=== PATIENT | female | born 1960 | race African-American/Black ===

== ENCOUNTER 2017-12-08 17:19 | Observation (INO) | payer SELFPAY ==
[2017-12-08 18:48] LABS: CKMB 0.4 ng/mL (0-6.6); Troponin I 0.107 ng/mL (< 0.028)
[2017-12-08 18:50] LABS: #Basophils 0.1 thou/uL (0.0-0.2); #Eosinphils 0.1 thou/uL (0.0-0.7); #Lymphocytes 2.7 thou/uL (1.20-3.40); #Monocytes 0.9 thou/uL (0.11-0.59); #Neutrophils 6.7 thou/uL (1.40-6.50); %Basophils 0.7 % (0.0-1.0); %Eosinophils 0.6 % (0.0-10.0); %Lymphocytes 25.4 % (21.0-51.0); %Neutrophils 64.2 % (42.0-75.0); Hemoglobin 8.6 g/dL (12.0-16.0); Mean Corpuscular HGB CONC 32.5 g/dL (32.0-36.0); Mean Corpuscular Hemoglobin 26.8 pg (27.0-31.0); Mean Corpuscular Volume 82.6 fL (78.0-98.0); Mean Platelet Volume 7.9 fL (7.4-10.4); Platelet Count 314 thou/uL (130-400); RBC Distribution Width 14.5 % (11.5-14.5); Red Blood Cell (RBC) Count 3.19 mill/uL (4.20-5.40); White Blood Cell (WBC) Count 10.4 thou/uL (4.8-10.8)
[2017-12-08 20:58] VITALS: BMI 16.0
--- NOTE | 2017-12-08 21:35 | PDOC.FPRHP ---
- History of Present Illness Chief Complaint: syncope History of Present Illness: Ms Win is a 57yo female with pmh of polysubstance abuse and recently diagnosed microcytic anemia who presented to [place] ED for syncope. She was found to have multiple pulmonary masses and brain lesions concerning for lung carcinoma with metastasis. Pt reports LOC this morning witnessed by her daughter. She had no presyncopal symptoms of lightheadedness or dizziness. Reports being down for 2 minutes. Reports 2-3 month hx of severe fatigue, night sweats, back and "bone pain", and anorexia. Reports >50lb wt loss over last 6 months. Family reports pt will eat a small spoonful of her favorite food in one day. She was recently diagnosed with microcytic anemia by PCP and prescribed iron replacement. She was unable to afford the iron and therefore has not taken it. Denies voice changes, dysphagia, fever. - Allergies/Adverse Reactions Allergies Allergy/AdvReac Type Severity Reaction Status Date / Time No Known Allergies Allergy Verified 12/08/17 22:16 - Home Medications Medication Instructions Recorded Confirmed Type No Known 12/08/17 12/08/17 History - History PMHx: Anemia, Substance abuse, alcohol abuse, lung mass found in 2014 admission PSHx: tubal ligation FHx: None Social: Works in a half-way. Currently living with daughter due to weakness and fatigue- previously lived alone. Reports hx of crack/cocaine use- last use 2 wks ago, reports drinking 3-5 drinks per week, smoked 1/2 pk cigarettes per day for 40 years, reports quitting ~1yr ago - Review of Systems General: reports: fever/chills, weight/appetite/sleep changes, night sweats, fatigue Eyes: denies: eye pain, vision changes ENT: denies: nasal congestion, rhinorrhea Respiratory: reports: cough (chronic productive of white sputum). denies: shortness of breath Cardiovascular: denies: chest pain, edema Gastrointestinal: denies: nausea, vomiting, diarrhea, constipation, abdominal pain Genitourinary: reports: other (denies hematuria). denies: dysuria Skin: reports: rashes (back c/w hx of shingles). denies: lesions Musculoskeletal: reports: pain, stiffness Neurological: reports: syncope. denies: numbness - Vital signs BP: 111/86 HR: 96 RR: 16 Tmax: 98.2 Pox: 97% on RA - Physical Exam Constitutional: NAD, awake, alert and oriented HEENT: normocephalic and atraumatic, PERRLA, TM's clear and intact, MMM, other ( poor dentition, multiple dental caries) Neck: trachea midline Heart: RRR, normal S1/S2 Lungs: CTAB, no respiratory distress Abdomen: soft, non-tender, bowel sounds present Musculoskeletal: normal structure Neurological: no focal deficit, CN II-XII intact, normal sensation, other ( Normal heel to adkins, rapid alternating movements, object identification) -Skin: Right sided hyperpigmentated areas in distribution of T6, c/w hx of shingles Heme/Lymphatic: no unusual bruising or bleeding, no petechia Psychiatric: normal mood and affect, good judgment and insight, intact recent and remote memory FMR H&P: Results - Labs Result Diagrams: 12/08/17 18:44 Lab results: WBC 10.4 thou/uL (4.8-10.8) 12/08/17 18:44 Hgb 8.6 g/dL (12.0-16.0) L 12/08/17 18:44 Hct 26.3 % (36.0-47.0) L 12/08/17 18:44 MCV 82.6 fL (78.0-98.0) 12/08/17 18:44 Plt Count 314 thou/uL (130-400) 12/08/17 18:44 Neutrophils % 64.2 % (42.0-75.0) 12/08/17 18:44 CK-MB (CK-2) 0.4 ng/mL (0-6.6) 12/08/17 18:14 - Radiology Interpretation CT scan - head Status: report reviewed by me Additional comment: Small 1cm area of enhancement in Left posterior inferior cerebellar hemisphere. Most likely a vascular mass CT scan - chest Status: report reviewed by me Additional comment: multiple pulmonary masses some spiculated c/w metastatic disease. Massive mediastinal hilar adenopathy. FMR H&P: A/P - Problem List (1) Lung mass Current Visit: Yes Status: Acute Code(s): R91.8 - OTHER NONSPECIFIC ABNORMAL FINDING OF LUNG FIELD (2) Metastatic cancer to brain Current Visit: Yes Status: Acute Code(s): C79.31 - SECONDARY MALIGNANT NEOPLASM OF BRAIN (3) Carcinoma, lung Current Visit: Yes Status: Acute Code(s): C34.90 - MALIGNANT NEOPLASM OF UNSP PART OF UNSP BRONCHUS OR LUNG (4) Malnutrition Current Visit: Yes Status: Acute Code(s): E46 - UNSPECIFIED PROTEIN-CALORIE MALNUTRITION (5) Alcohol abuse Current Visit: Yes Status: Acute Code(s): F10.10 - ALCOHOL ABUSE, UNCOMPLICATED (6) Anemia, iron deficiency Current Visit: Yes Status: Acute Code(s): D50.9 - IRON DEFICIENCY ANEMIA, UNSPECIFIED (7) Substance abuse Current Visit: Yes Status: Acute Code(s): F19.10 - OTHER PSYCHOACTIVE SUBSTANCE ABUSE, UNCOMPLICATED - Plan Ms Win is a 57yo female with pmh of recently diagnosed anemia and CT imaging concerning for lung malignancy here iwith syncope and elevated troponin Syncope - Unclear etiology however newly discovered brain mass likely etiology. No presyncope but will check orthostatics - Possibly related to/exacerbated by anemia Elevated Troponin, stable and downtrending - 0.12-> 0.107-> 0.101 - No chest pain, likely demand ischemia with underlying anemia - EKG NSR without ST changes, will repeat if symptomatic - Monitor on tele obs Lung masses concerning for lung malignancy with likely brain mets - Prior admission in [address] findings of right upper lobe spiculated mass. Dr Anderson evaluated her and pt was strongly advised to f/u with Dr Anderson and PCP for further evaluation. Pt expressed understanding at the time but it is unclear if she followed up. - CT Chest 12/08/17: multiple pulmonary masses some spiculated c/w metastatic disease. Massive mediastinal hilar adenopathy. - CT brain 12/08/17: Small 1cm area of enhancement in Left posterior inferior cerebellar hemisphere. Most likely an a vascular mass - 30lb wt loss since last admission in 2013 - Consult Oncology in AM - Consult Neurology in AM - Consulted Palliative Care - Ibuprofen and [place] PRN for pain - Consider further imaging of spine for evaluation of back pain Malnutrition likely 2/2 suspected malignancy - Unintentional wt loss of pt reported 50lbs over 6 months - Consulted dietetics - Supplemental nutrition TID after meals - Gentle IVF LR @90 Hypokalemia - 3.2 - Replaced with 40 IV - Continue to monitor Microcytic/Normocytic Anemia - MCV variable - Likely result of malignancy - Ordered Iron studies, B12, folate, FOBT Mildly dilated pancreatic duct on CT - Pt asymptomatic Polysubstance Abuse - last reported crack/cocaine abuse 2 weeks ago - Alcohol level 22, initiated CHANTAL protocol Code Status: DNR DVT ppx: Lovenox GI ppx: None FMR H&P: Upper Level - Pertinent history Ms. Win is a very pleasant 57 yo AAF who presents from home after syncopal episode witnessed by her daughter who is not present currently. She states she was not responsive for about 2 minutes. She is unaware if she had any seizure like activity. She has been feeling poorly for the last few months and has no appetite. Endorses night sweats and weight loss of about 50 pounds. She has a history of anemia but was unable to take iron pills. She otherwise has no medical problems she knows of. - Pertinent findings Gen: awake, alert and oriented x3. Cachetic appearing HEENT: EOMI, conjunctiva non-injected CV: RRR, no murmur noted RESP: CTAB ABD: soft, nontender, nondistended, bowel sounds present Ext: No edema BACK: No CVAT, bruising noted at recent shingles site on R flank, well-healed Neuro: No focal deficits - Plan Date/Time: 12/08/172134 57 yo AAF with no significant PMHx presents after syncopal episode likely related to brain lesion noted on CT 1. Syncope likely 2/2 brain mass. DDX includes vasovagal syncope, seizure, arrythmia, substance abuse. No presyncopal symptoms or lightheadedness. Will check orthostatics. Will consult oncology in AM for concerning findings on CT chest and brain. Has seen Dr. Anderson in the past as well. Concern for seizure at outside facility. Started on Keppra and given 800 mg IV at outside ER (approx. 20 mg/kg) Neuro consult in a.m. Will start 500 mg BID and appreciate neurology recommendations with dosing adjustment or if indicated to continue. 2. Normocytic Anemia: Likely related to suspected malignancy and chronic disease. Will check iron studies, B12, folate. Likely will require hematology assistance. 3. Cachexia and deconditioning: PT/OT and appreciate dietary recommendations. Will add Ensure TID with meals. 4. Hypokalemia: will replete IV 5. Elevated troponin: No chest pain. Likely demand ischemia related to anemia. Will give gentle IV fluids. Recheck if any chest pain. On telemetry monitoring. 6. Substance abuse: Reports occasional crack-cocaine and marijuana use. Encourage cessation 7. Alcohol use: Serum 22. ASE protocol. Reports drinking 3 drinks/week. 8. Hypercalcemia: Mild. Monitor. May be associated with likely malignancy. PPX: [place] Truong, Michelle Paz MD, have evaluated this patient and agree with findings/plan as outlined by financial intern resident. Pertinent changes/additions are listed here.
[2017-12-08 21:57] LABS: Troponin I 0.101 ng/mL (< 0.028)
[2017-12-09] MEDS ORDERED: HYDROcodone/Acetaminophen 5/325 mg Tablet PO PRN (00:03)
[2017-12-09] MEDS ORDERED: Potassium Chloride 10 MEQ in Premix Bag 1 BAG IVPB SCH (00:15)
[2017-12-09] MEDS ORDERED: Gabapentin 100 MG CAP PO SCH (00:30)
[2017-12-09] MEDS ORDERED: Potassium Chloride 20 MEQ TAB PO SCH (00:45)
[2017-12-09] MEDS: Lactated Ringer's 1,000 ML IV SCH ×3 (00:53→21:33)
[2017-12-09 03:39] LABS: Bilirubin Negative (Negative); Blood, Urine Negative (Negative); Clarity CLEAR (Clear); Glucose, Urine (Dipstick) 250 mg/dL (Negative); Leukocyte Negative (Negative); Nitrite Negative (Negative); Protein, Urine (Dipstick) Negative (Neg-Trace); Specific Gravity, Urine 1.031 (1.002-1.036); pH, Urine 6.5 (5.0-9.0)
[2017-12-09 03:42] LABS: Bacteria/HPF None Seen HPF (None Seen); Hyaline Casts/LPF 0-3 HYALINE CAST LPF (0-3 Hyaline); Pathc Cast-AUWi Flag 0.14 (0-2.49); RBC/HPF 0-3 HPF (0-3); WBC/HPF 0-3 HPF (0-3)
[2017-12-09 03:55] LABS: Medtox Reader # READER 4
[2017-12-09 03:56] LABS: Amphetamine Not Detected (NotDetected); Barbiturates Screen Detected (NotDetected); Benzodiazepine Screen Not Detected (NotDetected); Cocaine Metabolite Screen Not Detected (NotDetected); Medtox Control Line Valid? VALID (VALID); Methadone Not Detected (NotDetected); Methamphetamine Not Detected (NotDetected); Opiate Screen Not Detected (NotDetected); Oxycodone Screen Not Detected (NotDetected); Phencyclidine (PCP) Not Detected (NotDetected); THC/Cannabinoid Screen Not Detected (NotDetected); Tricyclic Screen Not Detected (NotDetected)
--- NOTE | 2017-12-09 05:59 | PDOC.FM ---
- Subjective Subjective: Pt feeling well this AM, reporting good rest. Pt has no complaints at this time. No fevers/ chills, no sob no cough no hemoptysis, no cp no palpitations, no nausea no vomiting - Objective Vital Signs & Weight: Vital Signs (12 hours) Temp Pulse Resp BP BP BP Pulse Ox 12/09/17 04:00 152/87 H 12/09/17 03:13 98.0 F 88 21 H 152/87 H 96 12/09/17 00:00 117/79 12/08/17 23:08 97.8 F 97 24 H 117/79 97 12/08/17 22:33 97.7 F 88 14 12/08/17 19:49 97.7 F 88 14 150/80 H 100 Weight Weight 45.087 kg Result Diagrams: 12/09/17 05:29 12/09/17 05:29 Phys Exam - Physical Examination pt appears frail and cachectic HEENT: moist MMs, sclera anicteric Respiratory: no wheezing, clear to auscultation bilateral Cardiovascular: RRR, no significant murmur Gastrointestinal: soft, non-tender, positive bowel sounds Musculoskeletal: no edema Neurological: normal sensation, moves all 4 limbs Psychiatric: normal affect Skin: no rash, normal turgor Dx/Plan (1) Metastatic cancer to brain Code(s): C79.31 - SECONDARY MALIGNANT NEOPLASM OF BRAIN Status: Acute (2) Carcinoma, lung Code(s): C34.90 - MALIGNANT NEOPLASM OF UNSP PART OF UNSP BRONCHUS OR LUNG Status: Acute (3) Anemia, iron deficiency Code(s): D50.9 - IRON DEFICIENCY ANEMIA, UNSPECIFIED Status: Acute (4) Lung mass Code(s): R91.8 - OTHER NONSPECIFIC ABNORMAL FINDING OF LUNG FIELD Status: Acute (5) Malnutrition Code(s): E46 - UNSPECIFIED PROTEIN-CALORIE MALNUTRITION Status: Acute (6) Substance abuse Code(s): F19.10 - OTHER PSYCHOACTIVE SUBSTANCE ABUSE, UNCOMPLICATED Status: Acute - Plan Plan: Ms Win is a 57yo female with pmh of recently diagnosed anemia and CT imaging concerning for lung malignancy here with syncope Syncope A- likely caused by newly discovered brain mass, possibly exacerbated by anemia. Pt has had no new syncopal episodes or neurologic sx P- monitor neurologic symptoms. Elevated Troponin A- stable and downtrending, 0.12-> 0.107-> 0.101. No chest pain, likely demand ischemia with underlying anemia. EKG NSR without ST changes, will repeat if symptomatic P- Monitor on tele obs Lung masses concerning for lung malignancy with likely brain mets A- Prior admission in 2013 dx with lung mass pt advised to f/u with Dr. Anderson. CT chest and brain 12/08 showed multiple spiculated masses in lungs and 1cm mass in L cerebellum. P- Consult Oncology today - Consult Neurology today - Consulted Palliative Care - Ibuprofen and [place] PRN for pain - Consider further imaging of spine for evaluation of back pain Malnutrition A- likely 2/2 suspected malignancy. Unintentional wt loss of pt reported 50lbs over 6 months P- Consulted dietary - Gentle IVF LR @90 Hypokalemia A- 3.2->3.9 after IV replenishment P- resolved Microcytic/Normocytic Anemia A- MCV variable. Likely result of malignancy. Low folate and iron levels P- Replenish iron and folate PO Polysubstance Abuse A- last reported crack/cocaine abuse 2 weeks ago. Alcohol level 22 P- CHANTAL protocol - UDS Code Status: DNR DVT ppx: Lovenox GI ppx: None
[2017-12-09 06:07] LABS: Anion Gap 11 mmol/L (10-20); BUN (Urea Nitrogen) 10 mg/dL (9.8-20.1); Calc. Creatinine Clearance 55 mL/min (70-130); Calcium 9.9 mg/dL (7.8-10.44); Carbon Dioxide 27 mmol/L (22-29); Chloride 102 mmol/L (98-107); Estimated GFR-MDRD 89; Glucose 95 mg/dL (70-105); Iron 23 ug/dL (50-170); Iron Binding Capacity, Total 233 mcg/dL (265-497); Potassium 3.9 mmol/L (3.5-5.1); Sodium 136 mmol/L (136-145)
[2017-12-09 06:49] LABS: Vitamin B12 Greater than 2000 pg/mL (211-911)
[2017-12-09] MEDS: Ibuprofen 800 MG TAB PO PRN ×2 (06:55→16:18)
[2017-12-09 07:15] LABS: #Eosinphils 0.1 thou/uL (0.0-0.7); #Lymphocytes 2.2 thou/uL (1.20-3.40); #Neutrophils 5.1 thou/uL (1.40-6.50); %Basophils 0.4 % (0.0-1.0); %Lymphocytes 26.3 % (21.0-51.0); %Monocytes 11.6 % (0.0-10.0); %Neutrophils 60.7 % (42.0-75.0); Hemoglobin 8.2 g/dL (12.0-16.0); Mean Corpuscular Hemoglobin 27.7 pg (27.0-31.0); Mean Corpuscular Volume 83.8 fL (78.0-98.0); Mean Platelet Volume 7.7 fL (7.4-10.4); Platelet Count 352 thou/uL (130-400); RBC Distribution Width 14.3 % (11.5-14.5); Red Blood Cell (RBC) Count 2.97 mill/uL (4.20-5.40); White Blood Cell (WBC) Count 8.5 thou/uL (4.8-10.8)
[2017-12-09] MEDS: Gabapentin 100 MG CAP PO SCH ×3 (08:38→21:33)
[2017-12-09] MEDS: Ferrous Sulfate 325 MG TAB PO SCH ×2 (08:38→16:18)
[2017-12-09] MEDS: levETIRAcetam 500 MG TAB PO SCH ×2 (08:39→21:33)
[2017-12-09] MEDS: Enoxaparin Sodium 40 MG/0.4 ML SYRINGE SC SCH ×2 (08:39→08:42)
--- NOTE | 2017-12-09 13:11 | PRG ---
DATE OF SERVICE: 12/09/2017 Ms. Win is a 57-year-old black female who was admitted from an outlying ER following a syncopal epis ode. She possibly had a seizure in the ER and a head CT revealed a brain lesion consistent with meta stases. Her chest x-ray showed evidence of possible showed possible lung cancer with several lung ma sses. She was transferred to our institution for higher level of care. This morning she is awake, alert, in no distress. She is having no respiratory distress or chest di scomfort. She does have [id number] history of smoking. Her chest CT does show some lung masses a s large as 2 cm. We will consult Pulmonology to see if bronchoscopy would be the next logical step i n her workup. We will continue her on anti-seizure medication given that she also has brain metastas es, likely from her lung. Clinically, however, she is stable.
--- NOTE | 2017-12-09 15:14 | CON ---
DATE OF SERVICE: 12/09/2017 This is a 57-year-old -[place] female, who presented with a syncopal episode. During the course of her workup, CT head showed a posterior circulation mass. CT of the chest shows multiple lung masses, largest one 2.4 cm in the right upper lobe and 2 cm in the left lower lobe, extensive adenopathy around the hilum. There are enlarged lymph nodes in the left hilum with multiple bilateral masses. There were 3 daughters at the bedside, whom I spoke to, who are all very difficult to talk to. States that the patient has been smoking up to a pack a day for most of her life. She quit smoking about 8 months ago. She was told in 2013 she had a lung cancer. I saw her briefly. She did not want any workup at that time. In 2014, she had a CAT scan in [place], which showed increasing right lung mass. She once again declined any treatment or workup, and now they tell me that because she had no insurance, no transportation, no workup was done. Now, they want all kinds of diagnosis and treatment if possible. She has longstanding history of substance abuse; in fact, the urine toxicology screen is positive for marijuana and cocaine. PAST MEDICAL HISTORY: No diabetes, hypertension. PREVIOUS SURGERIES: Tubal ligation. CHRONIC MEDICATIONS: None. SOCIAL HISTORY: Alcohol: Two beers a day. Tobacco: As noted. Substance: As noted. Unemployed. REVIEW OF SYSTEMS: Pertinent for marked weight loss. PHYSICAL EXAMINATION: VITAL SIGNS: Sats are 90% on room air, respirations 16, temperature 97, blood pressure 112/80. GENERAL: She is cachectic. HEENT: Poor dental hygiene. NECK: She has got bilateral supraclavicular lymphadenopathy. CHEST: Decreased breath sounds, no wheezing. CARDIAC: Normal S1 and S2, no gallops. ABDOMEN: Soft, no masses. LABORATORY DATA: White count is 8000, H and H 8 and 24, platelet count is 352. Electrolytes are normal. IMPRESSION: 1. Extensive metastatic cancer, probably adeno with bilateral supraclavicular, bilateral hilar, andCNS_ metastasis. 2. Marked cachexia. 3. Substance abuse. PLAN: I am not so sure at this stage what the benefit will be from getting a tissue diagnosis. I will get an input from Oncology to see whether she is a candidate for any kind of treatment. Best option and the easiest option will be to do a right supraclavicular lymph node biopsy. She has a big lymph node that is easily accessible. I am not so sure whether the family understands the extent of her problem. At this stage, we will discuss and follow. Consultation note of 70 minutes, 50% spent in direct patient care. PENNY
--- NOTE | 2017-12-09 23:20 | CON ---
DATE OF CONSULTATION: 12/09/2017 CONSULTING PHYSICIAN: Family medicine service. IMPRESSION: 1. Brief syncopal episode likely secondary to her cachexia. 2. Metastatic cerebellar lesion likely secondary to underlying lung cancer. PLAN: 1. MRI of the brain to determine whether there are other lesions present, which would change the pro gnosis and potential treatment plan. 2. Continue Keppra for now. HISTORY OF PRESENT ILLNESS: Ms. Win is a 57-year-old black female with a past history of tobacco us e as well as some illicit drug use. She was sitting out in her yard in a chair when she suddenly los t consciousness. The family members that were there said that she was only out for a matter of secon ds. She awoke briefly afterward without any headache, nausea, vomiting, chest pain, diaphoresis, or other symptoms associated with the event. She had no prodromal feeling that there was about to happe n. There was no convulsive activity either. She was brought in and workup undertaken. Her CT shows multiple pulmonary lesions. CT of the brain shows a cerebellar lesion, which appears to be a metast atic process. She is not complaining of any headache, dizziness, nausea, or other problems at this p oint. PAST MEDICAL HISTORY: Otherwise, negative. ALLERGIES: None reported. SOCIAL HISTORY: She quit smoking about a year ago but was a heavy smoker prior to this. FAMILY HISTORY: Noncontributory. REVIEW OF SYSTEMS: Otherwise, negative. PHYSICAL EXAMINATION: GENERAL: She is a thin middle-aged woman appears a bit older than her stated age. HEENT: Unremarkable. NECK: Supple. EXTREMITIES: No cyanosis. NEUROLOGIC: She is alert and appropriate. Her speech is fluent and clear. Her exam is nonfocal. N o abnormal movements were seen. LABORATORY STUDIES: Only remarkable for moderate anemia. EKG showed a sinus rhythm. SUMMARY: Middle-aged woman with multiple pulmonary lesions and probable metastatic lesion to the bra in. She may have other less visible lesions that will be seen on MRI. Current cerebral lesion would be amenable to surgical excision. We would go and proceed with the MRI, it is determine whether thi s is a feasible option for her.
--- NOTE | 2017-12-10 05:30 | PDOC.FM ---
- Subjective Subjective: Pt doing well this AM.No complaints at this time. I spoke with her at length about goals of care as pt had had time to think it over. She wishes to go home with comfort care alone and plans to refuse any further work up of the cancer for oncologic reasons. She does not want chemo or radiation of any kind and states that she just wishes to be comfortable. ROS: no fevers/chills, no sob no cough, no cp no palpitations, no nausea/ vomiting - Objective MAR Reviewed: Yes Vital Signs & Weight: Vital Signs (12 hours) Temp Pulse Resp BP BP Pulse Ox 12/10/17 03:16 97.6 F 82 16 121/78 96 12/09/17 20:00 108/78 12/09/17 19:55 97.6 F 75 16 12/09/17 19:36 97.6 F 75 16 108/78 97 Weight Admit Weight 45.087 kg Weight 45.087 kg I&O: 12/08/17 12/09/17 12/10/17 06:59 06:59 06:59 Intake Total 1182 650 Output Total 400 500 Balance 782 150 Result Diagrams: 12/09/17 05:29 12/09/17 05:29 Phys Exam - Physical Examination Constitutional: NAD cachectic HEENT: moist MMs, sclera anicteric Respiratory: no wheezing, clear to auscultation bilateral Cardiovascular: RRR, no significant murmur Gastrointestinal: soft, non-tender Musculoskeletal: no edema, pulses present Neurological: normal sensation, moves all 4 limbs Psychiatric: normal affect Skin: no rash, normal turgor Dx/Plan (1) Metastatic cancer to brain Code(s): C79.31 - SECONDARY MALIGNANT NEOPLASM OF BRAIN Status: Acute (2) Carcinoma, lung Code(s): C34.90 - MALIGNANT NEOPLASM OF UNSP PART OF UNSP BRONCHUS OR LUNG Status: Acute (3) Anemia, iron deficiency Code(s): D50.9 - IRON DEFICIENCY ANEMIA, UNSPECIFIED Status: Acute (4) Lung mass Code(s): R91.8 - OTHER NONSPECIFIC ABNORMAL FINDING OF LUNG FIELD Status: Acute (5) Malnutrition Code(s): E46 - UNSPECIFIED PROTEIN-CALORIE MALNUTRITION Status: Acute (6) Substance abuse Code(s): F19.10 - OTHER PSYCHOACTIVE SUBSTANCE ABUSE, UNCOMPLICATED Status: Acute - Plan Plan: Ms Win is a 57yo female with pmh of recently diagnosed anemia and CT imaging concerning for lung malignancy here with syncope Syncope A- likely caused by newly discovered brain mass, possibly exacerbated by anemia. Pt has had no new syncopal episodes or neurologic sx P- monitor neurologic symptoms. -neuro consulted -MRI per neuro recs, await results Elevated Troponin A- stable and downtrending, 0.12-> 0.107-> 0.101. No chest pain, likely demand ischemia with underlying anemia. EKG NSR without ST changes, will repeat if symptomatic P- Monitor on tele obs Lung masses concerning for lung malignancy with likely brain mets A- Prior admission in 2013 dx with lung mass pt advised to f/u with Dr. Anderson. CT chest and brain 12/08 showed multiple spiculated masses in lungs and 1cm mass in L cerebellum. Palliative care not stated pt wanted full code status and to agressively treat the cancer but this AM pt communicates otherwise P- Consulted Oncology - Consulted Neurology- getting mri - Consulted Palliative Care -will clarify pt goals of care with pt and palliative team today - Ibuprofen and [place] PRN for pain - potentially discharge today with hospice depending on pt goals of care Malnutrition A- likely 2/2 suspected malignancy. Unintentional wt loss of pt reported 50lbs over 6 months P- Consulted dietary, await recs - Gentle IVF LR @90 Hypokalemia A- 3.2->3.9 after IV replenishment P- resolved Microcytic/Normocytic Anemia A- MCV variable. Likely result of malignancy. Low folate and iron levels P- Replenish iron and folate PO Polysubstance Abuse A- last reported crack/cocaine abuse 2 weeks ago. Alcohol level 22 P- CHANTAL protocol Code Status: DNR DVT ppx: Lovenox GI ppx: None
--- NOTE | 2017-12-10 07:55 | PRG ---
DATE OF SERVICE: 12/10/2017 This morning she is awake, alert and responsive. Denies any pain or shortness of breath. PHYSICAL EXAMINATION: VITAL SIGNS: Temperature 97, pulse 82, sats 98%, respirations 18. CHEST: No wheezing. CARDIAC: Normal S1, S2, no gallops. ABDOMEN: Soft, no masses. IMPRESSION: 1. Metastatic lung cancer. 2. Chronic obstructive pulmonary disease. 3. Substance abuse. 4. Tobacco abuse. PLAN: I am not so sure the patient understands the extent of her problem. I have suggested we try and get a supraclavicular lymph node biopsy, probably the easiest way to make a diagnosis. It is unclear whether she will be treated. I am thinking more than likely it is adeno carcinoma. Will get Oncology opinion and then further discuss with patient whether she wants to be t reated, if she will agreed to have a lymph node biopsy. We will follow.
[2017-12-10] MEDS: levETIRAcetam 500 MG TAB PO SCH ×2 (08:47→19:27)
[2017-12-10] MEDS: Ferrous Sulfate 325 MG TAB PO SCH ×2 (08:48→15:55)
[2017-12-10] MEDS: Gabapentin 100 MG CAP PO SCH ×3 (08:48→19:26)
[2017-12-10] MEDS: Lactated Ringer's 1,000 ML IV SCH (08:51)
[2017-12-10] MEDS: Enoxaparin Sodium 40 MG/0.4 ML SYRINGE SC SCH (09:00)
[2017-12-10] MEDS ORDERED: Folic Acid 1 MG TAB PO SCH (12:00)
[2017-12-10 15:40] VITALS: BP 128/84; TEMP 97.6
--- NOTE | 2017-12-10 15:51 | MRI ---
MRI BRAIN WITH AND WITHOUT IV CONTRAST: Date: 12/10/17 HISTORY: Patient with metastatic lung cancer and recent CT scan of the head demonstrating an enhancing lesion in the left cerebellar hemisphere. COMPARISON: CT head obtained from [facility] on 12/08/17. FINDINGS: As noted on the CT scan examination, there is an enhancing lesion seen within the left cerebellar hem isphere which measures 1.0 cm AP x 1.0 cm craniocaudal x 1.2 cm transverse. There is also a gyriform area of enhancement seen within the superior left anterior frontal lobe near the vertex, and this are a demonstrates restricted diffusion and probably represents subacute infarction. There are additional punctate areas of restricted diffusion seen within the right cerebellar hemisphere, as well as in th e left centrum semiovale and trejo radiata, likely related to multiple punctate acute infarctions. N o large territorial infarction is seen. These findings may be related to embolic type phenomenon. There is area of encephalomalacia and gliosis seen within the right cerebellar hemisphere, likely rel ated to remote area of infarction. There is suggestion of a small, ring enhancing lesion in the superior right frontal lobe in a parafal cine location measuring 5.0 mm, which is adjacent to the area of gyriform enhancement as well, but th is is thought to more likely represent a tiny ring enhancing lesion as opposed to infarction. No additional abnormal areas of enhancement are appreciated. Cerebral and cerebellar volume loss is present. There are a few scattered punctate and patchy areas o f increased FLAIR and T2-weighted signal intensity likely attributable to chronic small vessel ischem ic changes which involves the magdi. There is mild vasogenic edema surrounding the lesion in the left cerebellar hemisphere. Mild cerebral and cerebellar volume loss is present. The ventricular system is normal in size, shape, and position. The visualized paranasal sinuses are clear. Appropriate flow-voids are demonstrated at the base of the brain. The orbits have a normal MRI appear ance. IMPRESSION: 1. Enhancing lesion in the left cerebellar hemisphere and left superior frontal lobe, likely attribu table to metastatic lesions. 2. Findings likely related to embolic-type phenomenon with punctate white matter infarctions involvi ng the left cerebral hemisphere with punctate acute infarction in the right cerebellar hemisphere. Th is includes what is most likely related to a subacute infarction in the left anterior frontal lobe at the vertex, but continued follow-up is recommended to ensure expected evolutionary changes of presum ed infarction. 3. Chronic small vessel ischemic changes, as well as cerebral and cerebellar volume loss. 4. Encephalomalacia and gliosis related to remote infarction right cerebellar hemisphere. Above findings discussed with Dr. Munoz on 12/10/17 at 1351 hours. CODE CR. POS: SALINA
--- NOTE | 2017-12-10 16:38 | PDOC.EVN ---
Event Note - Event Note Event Note: Visited with Patient and family at bedside . Patient found with Pulmonary carcinoma she has declined biopsy ,Chemo or radiation. Plans for dismissal to home with hospice care and I have confirmed with patient she desires for out of hospital DNR status.
--- NOTE | 2017-12-10 17:36 | CON ---
DATE OF CONSULTATION: 12/10/2017 REASON FOR CONSULTATION: Lung mass with brain metastasis. HISTORY OF PRESENT ILLNESS: Ms. Win is a 57-year-old -[place] female with past medical hist ory of lung nodule in 2013. She presented to the emergency room with a syncopal episode. She had a brain CT performed which showed a small 1 cm enhancement of the left posterior inferior cerebral debbie sphere. She underwent a chest CT which showed multiple pulmonary nodules, some more spiculated and c onsistent with metastatic disease. She had massive mediastinal and hilar adenopathy. Patient had so me pulmonary nodules in her CT scan in 2013 and was instructed to follow up with Pulmonology. She di d not do that. She has a history of polysubstance abuse. Her family states she has a very poor appe tite. She has lost 50 pounds over the last several months. She has weakness and fatigue. PAST MEDICAL HISTORY: 1. Lung nodule on CT scan in 2013. 2. Subsequent polysubstance abuse. PAST SURGICAL HISTORY: Tubal ligation. ALLERGIES: No known drug allergies. HOME MEDICATIONS: None. FAMILY HISTORY: Noncontributory. SOCIAL HISTORY: Single, lives with her daughter, [id number] history of smoking. She drinks 3-5 dr inks per week, history of crack and cocaine abuse and marijuana use. REVIEW OF SYSTEMS: Negative except were noted in HPI. PHYSICAL EXAMINATION: VITAL SIGNS: Temperature 97.3, pulse is 85, respiratory rate 18, BP is 131/83. She is 99% on room a ir. GENERAL: Cachectic female in no acute distress. RESPIRATORY: Unlabored. NEUROLOGIC: Nonfocal. PSYCHIATRIC: The patient is alert and oriented and appropriate. PERTINENT LABORATORY AND X-RAYS: Current WBCs are 8.5, hemoglobin 8.2, hematocrit 24.9, platelet cou nt 254,000. Sodium is 136, potassium 3.9, chloride 102, CO2 is 27, BUN is 10, creatinine 0.8. IMPRESSION: 1. Metastatic lung cancer with small brain lesion. 2. History of polysubstance abuse. 3. History of noncompliance. DISCUSSION: The patient states that she wants no further workup for her disease. She would like to go home with hospice for comfort care. This was discussed with her and the family at bedside and the y are all in agreement. She would like to go home today. I think given the extensive mediastinal ly mphadenopathy and multiple pulmonary masses clearly stage IV disease and all care would be palliative , so I concur that hospice is likely her best choice at this time. Thank you for the consult.
[2017-12-11] MEDS ORDERED: Folic Acid 1 MG TAB PO SCH ×2 (09:00)
--- NOTE | 2017-12-11 14:48 | PRG ---
DATE OF SERVICE: 12/10/2017 Ms. Win is resting quietly in bed. In no distress or new complaints. Ms. Win has consistently ref used any mention of treatment for her probable lung cancer with metastases. We will proceed with an MRI to see if she has further metastatic lesions. This is to prepare a treatment plan if she does ch dominique her mind. However, I want to emphasize that this patient has refused all offers of treatment an d further workup.
--- NOTE | 2017-12-13 19:53 | DIS-2 ---
DATE OF ADMISSION: 12/08/2017 DATE OF DISCHARGE: 12/10/2017 RESIDENT: Dariel Mak MD. ADMITTING ATTENDING: Alfonzo Mendoza M.D. DISCHARGE ATTENDING: Alfonzo Mendoza M.D. CONSULTATIONS: 1. Oncology, Dr. Hutson. 2. Pulmonology, Dr. Anderson. 3. Neurology, Dr. Munoz. PROCEDURES: Brain MRI on 12/10/2017. IMPRESSION: 1. Enhanced lesion on the left cerebellar hemisphere in the left superior frontal lobe, likely attributable to metastatic lesions. 2. Findings likely related to embolic type phenomenon with punctate white matter infarctions involving the left cerebral hemisphere with punctate acute infarction in the right cerebellar hemisphere. This includes what is most likely related to a subacute infarction in the left anterior frontal lobe at the vertex, but continued follow up is recommended to ensure expected evolutionary changes of presumed infarction. 3. Chronic small vessel ischemic as well as cerebral and cerebellar volume loss. 4. Encephalomalacia and gliosis related to remote infarction right cerebellar hemisphere. PRIMARY DIAGNOSIS: Metastatic cancer to brain and carcinoma of the lung. SECONDARY DIAGNOSES: Anemia, iron deficiency, malnutrition and substance abuse , seizures. DISCHARGE MEDICATIONS: 1. Ferrous sulfate 325 mg p.o. b.i.d. 2. Gabapentin 100 mg p.o. t.i.d. 3. Ibuprofen 800 mg p.o. q.8 hours p.r.n. 4. Levetiracetam 500 mg p.o. b.i.d. DISCONTINUED MEDICATIONS: None. HISTORY OF PRESENT ILLNESS AND HOSPITAL COURSE: This is a 57-year-old female with medical history of polysubstance abuse and diagnosis via CT of lung mass in 2014 and 2016 with noncompliance to follow up presenting to [place] ED for syncope. In [place], brain CT was done and chest CT was done revealing multiple lung lesions and Singular cerebellar lesion. The patient was then transferred to [place] ED. The patient was admitted and brain MRI was done per Neurology recommendations. MRI verified CT findings with results listed above. Per family's history, the patient may have had some seizure-like activity, so patient was started on Keppra and Neurology was consulted. Oncology was consulted once results for CT and MRI were read and Pulmonology was consulted for biopsy of lung masses. After about 12 hours, the patient and the patient's family decided that they did not want any interventions or evaluation for the cancer and declined any biopsies or further workup of cancer. The patient was set up with plans for followup with home hospice and followup appointments with Neurology for possible seizures secondary to brain lesion and was eventually discharged with those plans and outpatient hospice appointment. Inpatient stay was further complicated by elevated troponins on presentation starting at 0.12 and down trending to 0.101. The patient never had symptoms. No chest pain, so troponins were likely due to demand ischemia of underlying anemia. Patient was also anemic at times with hemoglobins of 8.2. On presentation; however, hemoglobins were stable and MCV was variable. B12, folate and iron studies were done showing an iron deficiency and folate deficiency. Folate and iron were replenished during stay and the patient was discharged with p.o. iron. The patient's stay was also complicated by hypokalemia with a potassium of 3.2. Potassium was replenished IV and was later found to be 3.9. The patient was advised to discontinue drug use and to follow up with hospice outpatient and Neurology outpatient for seizure disorder. DISPOSITION: Stable. DISCHARGE INSTRUCTIONS: 1. Location: Home. 2. Diet: Healthy heart. 3. Activity: As tolerated. 4. Follow up: With Neurology, Dr. Munoz in 1 week and with home hospice in 1 week. PENNY
== END 2017-12-10 19:46 | disposition home or self-care (01) ==
LOC: ERS 17:19 → 2SW 19:49
PROVIDERS: ADMIT Family Medicine; ATTEND Family Medicine
DX: R55 Syncope and collapse (principal); C79.31 Secondary malignant neoplasm of brain; C34.90 Malignant neoplasm of unspecified part of unspecified bronchus or lung; D50.9 Iron deficiency anemia, unspecified; F10.10 Alcohol abuse, uncomplicated; F14.10 Cocaine abuse, uncomplicated; E83.52 Hypercalcemia; J44.9 Chronic obstructive pulmonary disease, unspecified; E46 Unspecified protein-calorie malnutrition; Z68.1 Body mass index [BMI] 19.9 or less, adult; Z87.891 Personal history of nicotine dependence; Z66 Do not resuscitate; Z91.19 Patient's noncompliance with other medical treatment and regimen
CPT/HCPCS: 36415; 70553; 80048; 80306; 81001; 82607; 82728; 82746; 83540; 83550; 84443; 85025; 96360; 96361; 99285; G0378; G8987-GO-CI; G8988-GO-CI; G8989-GO-CI; J1650; J3480